=== PATIENT | male | born 1960 | race African-American/Black ===

== ENCOUNTER 2025-07-03 12:44 | Emergency (ER) | payer OTHER ==
[~2025-07-03] VITALS: Ht 170.2 cm; Wt 69.0 kg
[2025-07-03 12:49] VITALS: O2SAT 100
[2025-07-03] MEDS: ALBUTEROL (0.083%) 2.5MG/3ML NEB HHN SCH (13:05)
[2025-07-03] MEDS: IPRATROPIUM BROMIDE (0.02%) 0.5MG/2.5ML NEB HHN SCH (13:05)
[2025-07-03 13:11] LABS: HEMATOCRIT. 30.8 % (42.0-52.0); HEMOGLOBIN. 9.5 g/dL (14.0-18.0); MEAN PLATELET VOLUME 7.0 fl (7.4-10.4); PLATELET 298 x1000/uL (130-400); RED BLOOD CELL COUNT 3.91 mill/uL (4.7-6.1); RED CELL DISTRIBUTION WIDTH 20.1 % (11.6-14.6)
[2025-07-03] MEDS: SODIUM CHLORIDE 0.9% (SEPSIS BOLUS) IV ONE (13:11)
[2025-07-03] MEDS: METHYLPREDNISOLONE SOD SUCC 125MG/2ML (ACT-O-VIAL) IV ONE (13:11)
[2025-07-03] MEDS: CEFTRIAXONE 1GM/50ML 50 ML IV ONE (13:11)
[2025-07-03 13:26] LABS: CREATININE 0.8 mg/dL (0.6-1.3); TROPONIN I HIGH SENSITIVITY 7 ng/L (3.0-53); UREA NITROGEN BLOOD 5 mg/dL (9-23)
[2025-07-03 13:28] LABS: ASPARTATE AMINOTRANSFERASE 118 IU/L (<34); BILIRUBIN DIRECT 0.1 mg/dL (<=3.0)
[2025-07-03 13:29] LABS: BILIRUBIN TOTAL 0.4 mg/dL (0.1-1.0); INR 1.1; PROTEIN TOTAL 8.7 g/dL (6.0-8.3)
[2025-07-03 13:31] LABS: ETHANOL BLOOD 300 mg/dL (<10)
[2025-07-03 14:25] VITALS: TEMP 37
[2025-07-03 14:35] LABS: EOSINOPHILS % MANUAL 5.0 % (0.0-5.0); LYMPHOCYTES % MANUAL 46.0 % (20.0-50.0); MONOCYTES % MANUAL 11.0 % (2.0-8.0); NEUTROPHILS % MANUAL 38.0 % (45.0-75.0); PLATELET ESTIMATE NORMAL
[2025-07-03 14:54] VITALS: BP 129/75; PULSE 78; RESP 18; O2SAT 100
[2025-07-03 15:02] LABS: BG BASE EXCESS -5.6 mmol/L (-2.0-3.0); BG CARBOXYHEMOGLOBIN 0.2 % (0.5-1.5); BG DEOXYHEMOGLOBIN 0.9 % (0.0-5.0); BG FRACTION INSPIRED OXYGEN 50; BG HCO3 ACT 20.6 mmol/L (21.0-28.0); BG METHEMOGLOBIN 0.1 % (0.5-1.5); BG OXYGEN SATURATION 99.1 % (94.0-98.0); BG OXYHEMOGLOBIN 98.8 % (94.0-98.0); BG PCO2 43.4 mmHg (35.0-48.0); BG PH 7.295 (7.350-7.450); BG PO2 152.1 mmHg (83.0-108.0); BG SAMPLE SITE RIGHT RADIAL; BG TOTAL HEMOGLOBIN 10.3 g/dL (13.5-17.5); BG VENT MODE MASK - BIPAP; BG VENT RATE 20.0 set
== END 2025-07-03 15:43 | disposition left against medical advice (07) ==
LOC: ER 12:44 → EDBEDREQTM 15:14 → EDBEDREQ 15:14 → ER 15:43 → CMPBEDREQ 15:49
DX: J44.1 Chronic obstructive pulmonary disease with (acute) exacerbation (principal); F10.129 Alcohol abuse with intoxication, unspecified; Y90.8 Blood alcohol level of 240 mg/100 ml or more
CPT/HCPCS: 80076; 80048; 80320; 83880; 83605; 85025; 85610; 87040; 84484; 36415; 84145; 71045; 82805; 82375; 94660; 94664; 93005; 96361; 96365; 96375; 99291; 36600; J0696; J2919; Z7610 ×4; J7030; A4606; G0480